=== PATIENT | male | born 1965 | race African-American/Black ===

== ENCOUNTER 2019-07-29 10:22 | Inpatient (IN) | payer OTHER ==
--- NOTE | 2019-07-29 10:38 | BHS.RME ---
Substance Use & Tx History - Substance Use History Alcohol Substance amount: 2 six packs 24 oz beers Frequency of use: Daily Substance route: Oral Date of Last Use: 07/29/19 (2am) Cocaine (Powder) Substance amount: $100-200 Frequency of use: Daily Substance route: Smoking Date of Last Use: 07/29/19 (2am) - Last Treatment Date of last treatment: none Physical/Psych/Mental Status - Behavior General Behavior: Increased activity (restlessness, agitation) CIWA Nausea/Vomitin-No Nausea/No Vomiting Muscle Tremors: 1-None Visible, but [place] Anxiety: 3 Agitation: 1-Slight > Activity Paroxysmal Sweats: No Perspiration Orientation: 1-Uncertain about Date Tacttile Disturbances: 1-Very Mild Itch/Numbness Auditory Disturbances: 0-None Visual Disturbances: 0-None Headache: 1-Very Mild CIWA-Ar Total Score: 8
[2019-07-29 11:24] VITALS: BMI 25.8
--- NOTE | 2019-07-29 11:49 | HP ---
CIWA Score Nausea/Vomitin-No Nausea/No Vomiting Muscle Tremors: 1-None Visible, but [place] Anxiety: 3 Agitation: 1-Slight > Activity Paroxysmal Sweats: No Perspiration Orientation: 1-Uncertain about Date Tacttile Disturbances: 1-Very Mild Itch/Numbness Auditory Disturbances: 0-None Visual Disturbances: 0-None Headache: 1-Very Mild CIWA-Ar Total Score: 8 - Admission Criteria OASAS Guidelines: Admission for Medically Managed Detox: Requires at least one of the followin. CIWA greater than 12 2. Seizures within the past 24 hours 3. Delirium tremens within the past 24 hours 4. Hallucinations within the past 24 hours 5. Acute intervention needed for co occurring medical disorder 6. Acute intervention needed for co occurring psychiatric disorder 7. Severe withdrawal that cannot be handled at a lower level of care (continued vomiting, continued diarrhea, abnormal vital signs) requiring intravenous medication and/or fluids 8. Admitting History and Physical - Admission Chief Complaint: "I want to get clean and also my boss made me come here. I work for a [employer] and she told me that I had to get myself cleaned up." History of Present Illness: 54 year old male with history of alcohol dependence with withdrawal, cocaine use disorder. He has never been in treatment here but has been drinking since the age of 20. Alcohol: 2 six packs of beers 24 oz per day,started age 20 last used 07/29/19 at 3AM. Cocaine: Smoking $100-200 per day started at age 24 and last used 07/29/19 at 2AM PMH: HNT, Printzmetal Angina, MCFARLANE Psurg: None Psych: None He is now domiciled but may be evicted if he does not deal with his substance use. He has no legal issues pending. He is at high risk for relapse due to poor support systems, and poor recovery environment and having had blackout just 3 days ago [place] the park and found by a neighbor asleep in the park. He also needs an eye [facility] specialist every morning to get up. History Source: Patient Limitations to Obtaining History: No Limitations - Past Medical History Cardiovascular: Yes: HTN, Other (Angina Printzmetal) - Past Surgical History Past Surgical History: Yes: None - Smoking History Smoking history: Current every day smoker Have you smoked in the past 12 months: Yes Aproximately how many cigarettes per day: 20 Admission ROS S - HPI Allergies/Adverse Reactions: Allergies Allergy/AdvReac Type Severity Reaction Status Date / Time No Known Allergies Allergy Verified 07/29/19 11:20 Patient History - Patient Medical History Hx Asthma: No Hx Chronic Obstructive Pulmonary Disease (COPD): No Hx Cardiac Disorders: Yes (ANGINA) Hx Hypertension: Yes Hx Seizures: No Hx Diabetes: No Hx Gastrointestinal Disorders: No Hx Genitourinary Disorders: No Hx Sexually Transmitted Disorders: No Hx Renal Disease (ESRD): No Hx Depression: No Hx Suicide Attempt: No Hx Schizophrenia: No - Patient Surgical History Past Surgical History: Yes Hx Neurologic Surgery: No Hx Cataract Extraction: No Hx Cardiac Surgery: No Hx Lung Surgery: No Hx Breast Surgery: No Hx Breast Biopsy: No Hx Abdominal Surgery: No Hx Appendectomy: No Hx Cholecystectomy: No Hx Genitourinary Surgery: No Hx Section: No Hx Orthopedic Surgery: No Anesthesia Reaction: No - PPD History Previous Implant?: Yes Documented Results: Negative w/o proof - Smoking Cessation Smoking history: Current every day smoker Have you smoked in the past 12 months: Yes Aproximately how many cigarettes per day: 20 Hx Chewing Tobacco Use: No Initiated information on smoking cessation: Yes 'Breaking Loose' booklet given: 07/29/19 - Substances abused Alcohol Substance route: Oral Frequency: Daily Amount used: 12 CANS OF BEER Age of first use: 20 Date of last use: 07/29/19 Cocaine Substance route: Smoking Frequency: Daily Amount used: $100-$200 Age of first use: 24 Date of last use: 07/29/19 Admission Physical Exam S - Vital Signs Vital Signs: Vital Signs - 24 hr 07/29/19 11:21 Temperature 97.2 F L Pulse Rate 63 Respiratory 18 Rate Blood Pressure 110/70 - Physical General Appearance: Yes: Mild Distress, Irritable, Sweating, Anxious HEENTM: Yes: EOMI, Hearing grossly Normal, Normal ENT Inspection, Normocephalic, Normal Voice, DOYLE, Pharynx Normal, Tm's normal Respiratory: Yes: Chest Non-Tender, Lungs Clear, Normal Breath Sounds, No Respiratory Distress, No Accessory Muscle Use Neck: Yes: No masses,lesions,Nodules, Supple, Trachea in good position Breast: Yes: Within Normal Limits Cardiology: Yes: Regular Rhythm, Regular Rate, S1, S2 Abdominal: Yes: Non Tender, Flat, Soft Genitourinary: Yes: Within Normal Limits Back: Yes: Normal Inspection Musculoskeletal: Yes: full range of Motion, Gait Steady, Pelvis Stable Extremities: Yes: Normal Capillary Refill, Normal Inspection, Normal Range of Motion, Non-Tender Neurological: Yes: insurance agency manager II-XII NML intact, Fully Oriented, Alert, Motor Strength 5/5, Normal Mood/Affect, Normal Response Integumentary: Yes: Normal Color, Dry, Warm Lymphatic: Yes: Within Normal Limits - Diagnostic (1) Hypertension Current Visit: Yes Status: Acute (2) Alcohol dependence with withdrawal Current Visit: Yes Status: Acute (3) H/O Prinzmetal angina Current Visit: Yes Status: Acute Cleared for Admission S - Detox or Rehab [facility] Level of Care: Medically Managed Detox Regimen/Protocol: Librium Claeared for Rehab Admission: No Screened but not Admitted - Documentation of Visit Screened but not Admitted: No Breathalyzer - Breathalyzer Breathalyzer: 0 Urine Drug Screen - Test Device Lot number: [id number] Expiration date: 01/09/21 - Control Is test valid?: Yes - Results Drug screen NEGATIVE: No Urine drug screen results: SADAF-Cocaine Inpatient Rehab Admission - Rehab Decision to Admit Inpatient rehab admission?: No
[2019-07-29] MEDS ORDERED: METHOCARBAMOL 500 MG TABLET PO PRN (11:55)
[2019-07-29] MEDS ORDERED: MAGNESIUM CITRATE 300 ML BOTTLE PO PRN (11:55)
[2019-07-29] MEDS ORDERED: ACETAMINOPHEN 325 MG TABLET (FP) PO PRN ×2 (11:55)
[2019-07-29] MEDS ORDERED: MAG HYDROX/AL HYDROX/SIMETH 30 ML UNIT-DOSE CUP PO PRN (11:55)
[2019-07-29] MEDS ORDERED: NICOTINE POLACRILEX 2 MG GUM BUC PRN (11:55)
[2019-07-29] MEDS ORDERED: MENTHOL/PHENOL 1 EACH UD MM PRN (11:55)
[2019-07-29] MEDS ORDERED: ONDANSETRON *ODT* 4 MG TABLET SL ONE (11:55)
[2019-07-29] MEDS ORDERED: chlordiazePOXIDE HCL 25 MG CAPSULE PO PRN (11:55)
[2019-07-29] MEDS ORDERED: IBUPROFEN 400 MG TABLET (FP) PO PRN (11:55)
[2019-07-29] MEDS ORDERED: BISMUTH SUBSALICYLATE 262 MG/15 ML BTL PO PRN (11:55)
[2019-07-29] MEDS ORDERED: MAGNESIUM HYDROX 2400MG/30ML ORAL SUSPENSION 30 ML CUP PO PRN (11:55)
[2019-07-29] MEDS ORDERED: ISOSORBIDE MONONITRATE 20 MG TABLET PO SCH ×2 (12:00→12:45)
[2019-07-29] MEDS ORDERED: ISOSORBIDE MONONITRATE 30 MG TAB.SR.24H (FP) PO SCH (13:00)
[2019-07-29] MEDS ORDERED: LISINOPRIL 10 MG TABLET (FP) PO SCH (13:00)
--- NOTE | 2019-07-29 13:21 | EKG ---
Test Reason : Blood Pressure : / mmHG Vent. Rate : 059 BPM Atrial Rate : 059 BPM P-R Int : 120 ms QRS Dur : 074 ms QT Int : 404 ms P-R-T Axes : 076 003 032 degrees QTc Int : 399 ms SINUS BRADYCARDIA OTHERWISE NORMAL ECG NO PREVIOUS ECGS AVAILABLE Confirmed by ROSE MARY CARLISLE MD ([id number]) on 07/29/2019 1:21:15 PM Referred By: Confirmed By:ROSE MARY CARLISLE MD
[2019-07-29] MEDS: DOCUSATE SODIUM 100 MG CAPSULE (FP) PO SCH ×2 (13:26→22:30)
[2019-07-29] MEDS: chlordiazePOXIDE HCL 25 MG CAPSULE PO SCH ×3 (13:26→22:31)
[2019-07-29] MEDS: NICOTINE 7 MG/24 HOURS TOPICAL PATCH TD SCH (13:33)
[2019-07-29] MEDS: hydrOXYzine PAMOATE 25 MG CAPSULE (FP) PO SCH ×3 (13:33→22:30)
[2019-07-29] MEDS: PRENATAL VITAMINS W/ FOLIC ACID TABLET (FP) PO SCH (13:33)
[2019-07-29 15:12] LABS: HEMATOCRIT 50.1 % (35.4-49); HEMOGLOBIN 16.5 GM/dL (11.7-16.9); MCH 29.9 pg (25.7-33.7); MCHC 32.8 g/dl (32.0-35.9); MEAN CELL VOLUME 91.1 fl (80-96); MEAN PLT VOLUME 9.1 fl (7.5-11.1); PLATELET COUNT 239 K/MM3 (134-434); RDW 14.6 % (11.9-15.9); WHITE BLOOD COUNT 8.5 K/mm3 (4.0-10.0)
[2019-07-29 15:36] LABS: BILIRUBIN,TOTAL 1.2 mg/dL (0.2-1); BLOOD UREA NITROGEN 16.6 mg/dL (7-18); CALCIUM 9.4 mg/dL (8.5-10.1); POTASSIUM 5.1 mmol/L (3.5-5.1); TOT PROT 7.6 g/dl (6.4-8.2)
--- NOTE | 2019-07-29 16:19 | PN ---
[facility] Progress Note Note: auto service writer called patient preferred pharmacy at [phone] isosorbide mononitrate 30mg po od last filled April 2019 discontinue isosorbide lisinopril 30mg po daily discontinue lisinopril 30mgpo bid change schedule to lisinopril 30 mg po daily
[2019-07-29] MEDS: MELATONIN 5 MG TABLETS PO SCH (22:30)
[2019-07-29] MEDS: THIAMINE HCL 100 MG TABLET (FP) PO SCH (22:30)
[2019-07-30] MEDS: chlordiazePOXIDE HCL 25 MG CAPSULE PO SCH ×4 (06:52→22:30)
[2019-07-30] MEDS: hydrOXYzine PAMOATE 25 MG CAPSULE (FP) PO SCH ×5 (06:52→22:30)
[2019-07-30] MEDS ORDERED: PATIENT'S OWN MEDICATION (NON-FORMULARY) (Lovastatin [Altoprev] 20 MG) PO SCH (10:00)
[2019-07-30] MEDS ORDERED: PATIENT'S OWN MEDICATION (NON-FORMULARY) (Lisinopril [Lisinopril] 30 MG) PO SCH (10:00)
[2019-07-30] MEDS: SPIRONOLACTONE 25 MG TABLET (FP) PO SCH (10:22)
[2019-07-30] MEDS: LISINOPRIL 10 MG TABLET (FP) PO SCH (10:23)
[2019-07-30] MEDS: PRENATAL VITAMINS W/ FOLIC ACID TABLET (FP) PO SCH (10:23)
[2019-07-30] MEDS: DOCUSATE SODIUM 100 MG CAPSULE (FP) PO SCH ×2 (10:23→22:29)
[2019-07-30] MEDS: NICOTINE 7 MG/24 HOURS TOPICAL PATCH TD SCH (10:25)
[2019-07-30] MEDS: PATIENT'S OWN MEDICATION (NON-FORMULARY) (Lovastatin [Altoprev] 20 MG) PO SCH ×2 (10:25→18:05)
[2019-07-30] MEDS: ISOSORBIDE MONONITRATE 30 MG TAB.SR.24H (FP) PO SCH (10:27)
--- NOTE | 2019-07-30 12:02 | PN ---
S CIWA - CIWA Score Nausea/Vomitin-Mild Nausea/No Vomiting Muscle Tremors: None Anxiety: 1-Mildly Anxious Agitation: 1-Slight > Activity Paroxysmal Sweats: No Perspiration Orientation: 0-Oriented Tacttile Disturbances: 0-None Auditory Disturbances: 0-None Visual Disturbances: 1-Very Mild Sensitivity Headache: 1-Very Mild CIWA-Ar Total Score: 5 BHS Progress Note (SOAP) Subjective: Laboratory Tests 07/29/19 07/29/19 07/29/19 12:15 12:15 12:15 WBC 8.5 RBC 5.50 Hgb 16.5 Hct 50.1 H MCV 91.1 MCH 29.9 MCHC 32.8 RDW 14.6 Plt Count 239 MPV 9.1 Sodium 139 Potassium 5.1 Chloride 103 Carbon Dioxide 28 Anion Gap 8 BUN 16.6 Creatinine 1.0 Est GFR (CKD-EPI)AfAm 99.15 Est GFR (CKD-EPI)NonAf 85.55 Random Glucose 82 Calcium 9.4 Total Bilirubin 1.2 H AST 42 H ALT 57 Alkaline Phosphatase 85 Total Protein 7.6 Albumin 4.0 RPR Titer Nonreactive Vital Signs Temperature 97.0 F L 07/30/19 09:15 Pulse Rate 80 07/30/19 09:15 Respiratory Rate 16 07/30/19 09:15 Blood Pressure 103/63 07/30/19 09:15 O2 Sat by Pulse Oximetry (%) 95 07/29/19 21:03 PE Gnl: WDWN, in no distress Mental status: awake, alert Motor: moves all limbs well coordination: normal Objective: 07/30/19 11:59 07/30/19 12:00 Laboratory Tests 07/29/19 07/29/19 07/29/19 12:15 12:15 12:15 WBC 8.5 RBC 5.50 Hgb 16.5 Hct 50.1 H MCV 91.1 MCH 29.9 MCHC 32.8 RDW 14.6 Plt Count 239 MPV 9.1 Sodium 139 Potassium 5.1 Chloride 103 Carbon Dioxide 28 Anion Gap 8 BUN 16.6 Creatinine 1.0 Est GFR (CKD-EPI)AfAm 99.15 Est GFR (CKD-EPI)NonAf 85.55 Random Glucose 82 Calcium 9.4 Total Bilirubin 1.2 H AST 42 H ALT 57 Alkaline Phosphatase 85 Total Protein 7.6 Albumin 4.0 RPR Titer Nonreactive Vital Signs - 24 hr 07/29/19 07/29/19 07/29/19 12:57 16:49 21:03 Temperature 96.7 F L 97.0 F L 97.6 F Pulse Rate 58 L 65 69 Respiratory 16 16 18 Rate Blood Pressure 117/76 125/79 92/54 L O2 Sat by Pulse 99 95 Oximetry (%) 07/30/19 07/30/19 07/30/19 00:30 03:30 07:59 Temperature 97.6 F Pulse Rate 60 Respiratory 16 18 18 Rate Blood Pressure 112/69 O2 Sat by Pulse Oximetry (%) 07/30/19 09:15 Temperature 97.0 F L Pulse Rate 80 Respiratory 16 Rate Blood Pressure 103/63 O2 Sat by Pulse Oximetry (%) PE Gnl: wdwn, in no distress, wants to change rooms/conflict with room mate MS: awake, alert,nl language Motor: symmetic movement Gait: steady Assessment: 07/30/19 12:02 1. Alcohol use disorder Plan: 1. continue Librium withdrawal protocol
[2019-07-30] MEDS: THIAMINE HCL 100 MG TABLET (FP) PO SCH (22:29)
[2019-07-30] MEDS: MELATONIN 5 MG TABLETS PO SCH (22:30)
[2019-07-31] MEDS: hydrOXYzine PAMOATE 25 MG CAPSULE (FP) PO SCH ×5 (05:58→22:39)
[2019-07-31] MEDS: chlordiazePOXIDE HCL 25 MG CAPSULE PO SCH ×4 (05:58→22:39)
[2019-07-31] MEDS: ISOSORBIDE MONONITRATE 30 MG TAB.SR.24H (FP) PO SCH (10:11)
[2019-07-31] MEDS: LISINOPRIL 10 MG TABLET (FP) PO SCH (10:11)
[2019-07-31] MEDS: NICOTINE 7 MG/24 HOURS TOPICAL PATCH TD SCH (10:11)
[2019-07-31] MEDS: SPIRONOLACTONE 25 MG TABLET (FP) PO SCH (10:11)
[2019-07-31] MEDS: DOCUSATE SODIUM 100 MG CAPSULE (FP) PO SCH ×2 (10:11→22:39)
[2019-07-31] MEDS: PRENATAL VITAMINS W/ FOLIC ACID TABLET (FP) PO SCH (10:11)
--- NOTE | 2019-07-31 10:24 | PN ---
S CIWA - CIWA Score Nausea/Vomitin-No Nausea/No Vomiting Muscle Tremors: None Anxiety: 2 Agitation: 1-Slight > Activity Paroxysmal Sweats: 2 Orientation: 0-Oriented Tacttile Disturbances: 0-None Auditory Disturbances: 0-None Visual Disturbances: 0-None Headache: 2-Mild CIWA-Ar Total Score: 7 BHS Progress Note (SOAP) Subjective: c/o irritability, sweats, headache, and anxiety. Objective: 07/31/19 10:24 Vital Signs 07/31/19 07/31/19 07/31/19 03:30 06:24 09:05 Temperature 97.0 F L 96.6 F L Pulse Rate 71 75 Respiratory 16 18 18 Rate Blood Pressure 116/77 100/64 O2 Sat by Pulse 97 Oximetry (%) Laboratory Last Values WBC 8.5 K/mm3 (4.0-10.0) 07/29/19 12:15 RBC 5.50 M/mm3 (4.00-5.60) 07/29/19 12:15 Hgb 16.5 GM/dL (11.7-16.9) 07/29/19 12:15 Hct 50.1 % (35.4-49) H 07/29/19 12:15 MCV 91.1 fl (80-96) 07/29/19 12:15 MCH 29.9 pg (25.7-33.7) 07/29/19 12:15 MCHC 32.8 g/dl (32.0-35.9) 07/29/19 12:15 RDW 14.6 % (11.9-15.9) 07/29/19 12:15 Plt Count 239 K/MM3 (134-434) 07/29/19 12:15 MPV 9.1 fl (7.5-11.1) 07/29/19 12:15 Sodium 139 mmol/L (136-145) 07/29/19 12:15 Potassium 5.1 mmol/L (3.5-5.1) 07/29/19 12:15 Chloride 103 mmol/L (98-107) 07/29/19 12:15 Carbon Dioxide 28 mmol/L (21-32) 07/29/19 12:15 Anion Gap 8 MMOL/L (8-16) 07/29/19 12:15 BUN 16.6 mg/dL (7-18) 07/29/19 12:15 Creatinine 1.0 mg/dL (0.55-1.3) 07/29/19 12:15 Est GFR (CKD-EPI)AfAm 99.15 07/29/19 12:15 Est GFR (CKD-EPI)NonAf 85.55 07/29/19 12:15 Random Glucose 82 mg/dL (74-106) 07/29/19 12:15 Calcium 9.4 mg/dL (8.5-10.1) 07/29/19 12:15 Total Bilirubin 1.2 mg/dL (0.2-1) H 07/29/19 12:15 AST 42 U/L (15-37) H 07/29/19 12:15 ALT 57 U/L (13-61) 07/29/19 12:15 Alkaline Phosphatase 85 U/L (45-117) 07/29/19 12:15 Total Protein 7.6 g/dl (6.4-8.2) 07/29/19 12:15 Albumin 4.0 g/dl (3.4-5.0) 07/29/19 12:15 RPR Titer Nonreactive (NONREACTIVE) 07/29/19 12:15 Labs noted. Assessment: 07/31/19 10:24 AOX3, in no acute respiratory distress. Full ROM, ambulating in the unit. Withdrawal symptoms. Plan: continue detox.
[2019-07-31] MEDS: PATIENT'S OWN MEDICATION (NON-FORMULARY) (Lovastatin [Altoprev] 20 MG) PO SCH ×2 (18:53→22:39)
[2019-07-31] MEDS: THIAMINE HCL 100 MG TABLET (FP) PO SCH (22:39)
[2019-07-31] MEDS: MELATONIN 5 MG TABLETS PO SCH (22:39)
[2019-08-01] MEDS ORDERED: chlordiazePOXIDE HCL 10 MG CAPSULE PO PRN
[2019-08-01] MEDS: chlordiazePOXIDE HCL 10 MG CAPSULE PO SCH ×4 (06:10→23:06)
[2019-08-01] MEDS: hydrOXYzine PAMOATE 25 MG CAPSULE (FP) PO SCH ×5 (06:10→23:05)
[2019-08-01] MEDS: PRENATAL VITAMINS W/ FOLIC ACID TABLET (FP) PO SCH (10:32)
[2019-08-01] MEDS: NICOTINE 7 MG/24 HOURS TOPICAL PATCH TD SCH (10:33)
[2019-08-01] MEDS: SPIRONOLACTONE 25 MG TABLET (FP) PO SCH (10:33)
[2019-08-01] MEDS: DOCUSATE SODIUM 100 MG CAPSULE (FP) PO SCH ×2 (10:33→23:05)
[2019-08-01] MEDS: LISINOPRIL 10 MG TABLET (FP) PO SCH (10:33)
[2019-08-01] MEDS: ISOSORBIDE MONONITRATE 30 MG TAB.SR.24H (FP) PO SCH (10:33)
--- NOTE | 2019-08-01 12:17 | PN ---
[facility] CIWA - CIWA Score Nausea/Vomitin-No Nausea/No Vomiting Muscle Tremors: 1-None Visible, but [place] Anxiety: 1-Mildly Anxious Agitation: 0-Normal Activity Paroxysmal Sweats: 1-Minimal Palms Moist Orientation: 0-Oriented Tacttile Disturbances: 0-None Auditory Disturbances: 0-None Visual Disturbances: 1-Very Mild Sensitivity Headache: 0-None Present CIWA-Ar Total Score: 4 B[facility] Progress Note (SOAP) Subjective: 54 years old male admitted on 07/29/19 for alcohol withdrawal sx managment tretain with librium detox regiment prefers to leave the detox unit tomorrow as one day early than estimated discharge date feeling better less tremor mild anxiety no restlessness Objective: 08/01/19 12:15 Vital Signs Temperature 97.3 F L 08/01/19 08:53 Pulse Rate 64 08/01/19 08:53 Respiratory Rate 16 08/01/19 08:53 Blood Pressure 93/58 L 08/01/19 08:53 O2 Sat by Pulse Oximetry (%) 100 08/01/19 06:28 Laboratory Last Values WBC 8.5 K/mm3 (4.0-10.0) 07/29/19 12:15 RBC 5.50 M/mm3 (4.00-5.60) 07/29/19 12:15 Hgb 16.5 GM/dL (11.7-16.9) 07/29/19 12:15 Hct 50.1 % (35.4-49) H 07/29/19 12:15 MCV 91.1 fl (80-96) 07/29/19 12:15 MCH 29.9 pg (25.7-33.7) 07/29/19 12:15 MCHC 32.8 g/dl (32.0-35.9) 07/29/19 12:15 RDW 14.6 % (11.9-15.9) 07/29/19 12:15 Plt Count 239 K/MM3 (134-434) 07/29/19 12:15 MPV 9.1 fl (7.5-11.1) 07/29/19 12:15 Sodium 139 mmol/L (136-145) 07/29/19 12:15 Potassium 5.1 mmol/L (3.5-5.1) 07/29/19 12:15 Chloride 103 mmol/L (98-107) 07/29/19 12:15 Carbon Dioxide 28 mmol/L (21-32) 07/29/19 12:15 Anion Gap 8 MMOL/L (8-16) 07/29/19 12:15 BUN 16.6 mg/dL (7-18) 07/29/19 12:15 Creatinine 1.0 mg/dL (0.55-1.3) 07/29/19 12:15 Est GFR (CKD-EPI)AfAm 99.15 07/29/19 12:15 Est GFR (CKD-EPI)NonAf 85.55 07/29/19 12:15 Random Glucose 82 mg/dL (74-106) 07/29/19 12:15 Calcium 9.4 mg/dL (8.5-10.1) 07/29/19 12:15 Total Bilirubin 1.2 mg/dL (0.2-1) H 07/29/19 12:15 AST 42 U/L (15-37) H 07/29/19 12:15 ALT 57 U/L (13-61) 07/29/19 12:15 Alkaline Phosphatase 85 U/L (45-117) 07/29/19 12:15 Total Protein 7.6 g/dl (6.4-8.2) 07/29/19 12:15 Albumin 4.0 g/dl (3.4-5.0) 07/29/19 12:15 RPR Titer Nonreactive (NONREACTIVE) 07/29/19 12:15 lab noted Assessment: 08/01/19 12:16 alcohol withdrawal Plan: librium regiment
[2019-08-01] MEDS ORDERED: ISOSORBIDE MONONITRATE 30 MG TAB.SR.24H (FP) PO SCH (13:22)
--- NOTE | 2019-08-01 13:23 | PN ---
[facility] Progress Note Note: bp is gradually maintenance below 100 set parameter please hole antihypertensive medication is systolic below 110
[2019-08-01] MEDS: MELATONIN 5 MG TABLETS PO SCH (23:05)
[2019-08-01] MEDS: PATIENT'S OWN MEDICATION (NON-FORMULARY) (Lovastatin [Altoprev] 20 MG) PO SCH (23:05)
[2019-08-01] MEDS: THIAMINE HCL 100 MG TABLET (FP) PO SCH (23:06)
[2019-08-02] MEDS ORDERED: chlordiazePOXIDE HCL 10 MG CAPSULE PO SCH (05:00)
[2019-08-02 06:35] VITALS: BP 101/63; PULSE 57; TEMP 97.7
[2019-08-02] MEDS: hydrOXYzine PAMOATE 25 MG CAPSULE (FP) PO SCH (07:05)
[2019-08-03] MEDS ORDERED: chlordiazePOXIDE HCL 10 MG CAPSULE PO ONE (05:00)
== END 2019-08-02 07:18 | disposition home or self-care (01) | DRG 774 ==
LOC: YASAS 10:22 → Y6N 11:43 → Y3N 12:24
PROVIDERS: ADMIT Allergy & Immunology; ATTEND Allergy & Immunology
PROC: HZ2ZZZZ Detoxification Services for Substance Abuse Treatment (ICD-10-PCS; principal; 2019-07-29)
DX: F10.230 Alcohol dependence with withdrawal, uncomplicated (principal); F14.20 Cocaine dependence, uncomplicated; I10 Essential (primary) hypertension; R51 Headache; Z86.79 Personal history of other diseases of the circulatory system
CPT/HCPCS: 36415; 80053; 85027; 86593; 93005; 93010